=== PATIENT | female | born 1940 | race Caucasian/White ===

== ENCOUNTER 2025-04-25 06:24 | Day surgery (SDC) | payer OTHER ==
[2025-04-24 12:16] VITALS: BMI 27.0
[2025-04-25] MEDS ORDERED: RITUXIMAB PVVR IVPB ONE (08:00)
[2025-04-25] MEDS ORDERED: SODIUM CHLORIDE IVPB ONE (08:00)
[2025-04-25] MEDS ORDERED: SODIUM CHLORIDE 250 ML IV ONE ×2 (09:00→14:00)
[2025-04-25] MEDS ORDERED: FAMOTIDINE 20 MG/50 ML IVPB 20 MG/50 ML MG IVPB ONE (09:30)
[2025-04-25] MEDS ORDERED: DEXAMETHASONE SODIUM PHOSPHATE 8 MG, DIPHENHYDRAMINE 25 MG in SODIUM CHLORIDE 100 ML IVPB ONE (09:30)
[2025-04-25] MEDS ORDERED: ACETAMINOPHEN 325 MG TABLET (FP) PO ONE (09:30)
[2025-04-25] MEDS ORDERED: FENTANYL CITRATE/PF 50 MCG/ML VIAL ONE (13:34)
[2025-04-25] MEDS ORDERED: MIDAZOLAM HCL 2 MG/2 ML SINGLE DOSE VIAL ONE (13:39)
[2025-04-25] MEDS: FENTANYL CITRATE/PF 50 MCG/ML VIAL IVPUSH ONE (13:43)
[2025-04-25] MEDS: MIDAZOLAM HCL 2 MG/2 ML SINGLE DOSE VIAL IVPUSH ONE ×2 (13:44→13:52)
[2025-04-25 16:35] VITALS: TEMP 97.5
[2025-04-25 17:08] VITALS: BP 154/56; PULSE 57; RESP 18
== END 2025-04-25 16:50 | disposition home or self-care (01) ==
LOC: JRADIR 06:24
PROVIDERS: ATTEND Internal Medicine Hematology & Oncology
PROC: 0JH60WZ Insertion of Totally Implantable Vascular Access Device into Chest Subcutaneous Tissue and Fascia, Open Approach (ICD-10-PCS; principal; 2025-04-25)
DX: C82.90 Follicular lymphoma, unspecified, unspecified site (principal)
CPT/HCPCS: 36561; 77001; C1788

== ENCOUNTER 2025-04-27 10:20 | Day surgery (SDC) | payer OTHER ==
[2025-04-27] MEDS: SODIUM CHLORIDE 250 ML IV ONE ×2 (09:59→14:13)
[2025-04-27] MEDS: ACETAMINOPHEN 325 MG TABLET (FP) PO ONE (10:00)
[2025-04-27] MEDS: DEXAMETHASONE SODIUM PHOSPHATE 8 MG, DIPHENHYDRAMINE 25 MG in SODIUM CHLORIDE 100 ML IVPB ONE (10:00)
[2025-04-27] MEDS: FAMOTIDINE 20 MG/50 ML IVPB 20 MG/50 ML MG IVPB ONE (10:35)
[2025-04-27] MEDS: SODIUM CHLORIDE IVPB ONE (11:12)
[2025-04-27] MEDS: RITUXIMAB PVVR IVPB ONE (11:12)
[2025-04-27 12:38] VITALS: RESP 20
[2025-04-27 14:19] VITALS: BP 182/48; PULSE 52; TEMP 98.3
[2025-04-27] MEDS: PORTA CATH FLUSH 10 ML IVPUSH PRN (14:45)
== END 2025-04-27 15:00 | disposition home or self-care (01) ==
LOC: JONCCHEMO 10:20 → J7W 10:21 → JONCCHEMO 15:00
PROVIDERS: ATTEND Internal Medicine Hematology & Oncology
PROC: 3E04305 Introduction of Other Antineoplastic into Central Vein, Percutaneous Approach (ICD-10-PCS; principal; 2025-04-27)
PROC: 3E043GC Introduction of Other Therapeutic Substance into Central Vein, Percutaneous Approach (ICD-10-PCS; 2025-04-27)
DX: Z51.11 Encounter for antineoplastic chemotherapy (principal); C82.98 Follicular lymphoma, unspecified, lymph nodes of multiple sites
CPT/HCPCS: Q5119